=== PATIENT | male | born 1980 | race Asian ===

== ENCOUNTER 2019-06-07 00:23 | Emergency (ER) | payer OTHER ==
[~2019-06-07] VITALS: Ht 162.6 cm; Wt 98.0 kg
[2019-06-07 01:45] VITALS: BP_SYST 155
--- NOTE | 2019-06-07 05:00 | NUR ---
Pt placed to ER chair 1. Pt c/o left knee pain onset yesterday morning. Pt able to ambulate with steady gait. Denies injury or trauma, no redness or swelling to site. Pt concerned that it may be r/t gout in the knee. +hx gout to left great toe. Pt states that pain increases throughout the day.
--- NOTE | 2019-06-07 05:25 | NUR ---
Dr. Lam assessing pt.
[2019-06-07] MEDS ORDERED: COLCHICINE 0.6 MG TABLET PO ONE (05:45)
--- NOTE | 2019-06-07 05:48 | NUR ---
Pt placed to ER hallway bed. X-ray at bedside.
[2019-06-07] MEDS ORDERED: IBUPROFEN 800 MG TABLET PO ONE (06:30)
--- NOTE | 2019-06-07 06:30 | NUR ---
Pt resting quietly, no needs verbalized at this time.
--- NOTE | 2019-06-07 07:35 | NUR ---
Report given to KASSIDY Jackson.
[2019-06-07 08:02] VITALS: BP_SYST 143
--- NOTE | 2019-06-07 08:02 | NUR ---
Patient given written and verbal discharge instructions and verbalizes understanding. ER MD discussed with patient the results and treatment provided. Patient in stable condition. ID arm band removed. Rx of MOTRIN given. Patient educated on pain management and to follow up with PMD. Pain Scale 2/10. Opportunity for questions provided and answered. Medication side effect fact sheet provided.
== END 2019-06-07 08:02 | disposition home or self-care (01) ==
LOC: SED 00:23
DX: M25.562 Pain in left knee (principal)
CPT/HCPCS: 36415; 73564; 84550-TC; 99284